=== PATIENT | male | born 1965 ===

== ENCOUNTER → 2017-01-09 | Day surgery (SDC) | payer OTHER ==
[~2017-01-09] MED LIST: Lactated Ringer's 500 ML IV ONE; Propofol 10 mg/ml Inj (20 ML) ONE
[2017-01-09 10:17] VITALS: BP 91/52; PULSE 72; RESP 17; TEMP 98; O2SAT 100
== END | disposition home or self-care (01) ==
LOC: H.ENDO 07:39
PROVIDERS: ATTEND Internal Medicine Gastroenterology
DX: K30 Functional dyspepsia (principal); K29.50 Unspecified chronic gastritis without bleeding